=== PATIENT | female | born 1970 ===

== ENCOUNTER 2017-12-08 13:03 | Emergency (ER) | payer MEDICAID ==
[2017-12-08 13:03] VITALS: PULSE 74; BMI 25.6
[2017-12-08 13:13] VITALS: BP 135/80; PULSE 86; RESP 18; TEMP 100; O2SAT 99
[2017-12-08 14:37] LABS: BASO % 1.5 % (0.0-2.0); EOS % 0.1 % (0.0-4.0); HEMOGLOBIN 13.4 g/dL (12.0-16.0); LYMPH # 1.1 K/uL (1.0-4.3); LYMPH % 38.1 % (20.0-40.0); MEAN CELL VOLUME 89.5 fl (81.0-99.0); MEAN CORPUSCULAR HEMOGLOBIN 30.2 pg (27.0-31.0); MEAN CORPUSCULAR HGB CONC 33.7 g/dL (33.0-37.0); MEAN PLATELET VOLUME 8.7 fl (7.2-11.7); MONO # 0.3 K/uL (0.0-0.8); MONO % 12.2 % (0.0-10.0); NEUT # 1.3 K/uL (1.8-7.0); NEUT % 48.1 % (50.0-75.0); NRBC % 0.6 % (0.0-0.0); RBC 4.43 Mil/uL (3.80-5.20); RED CELL DISTRIBUTION WIDTH 14.1 % (11.5-14.5); WHITE BLOOD COUNT 2.8 K/uL (4.8-10.8)
[2017-12-08 14:47] LABS: CALCIUM 8.6 mg/dL (8.4-10.2); GFR AFRICAN-AMERICAN > 60; GFR NON-AFRICAN AMERICAN > 60
[2017-12-08 14:57] LABS: INR 5.4 (0.9-1.2); PARTIAL THROMBOPLASTIN TIME 73.2 Seconds (25.6-37.1)
[2017-12-08 15:07] LABS: ALB/GLOB RATIO 0.9 (1.0-2.1); ALBUMIN 4.2 g/dL (3.5-5.0); ALT/SGPT 35 U/L (9-52); AST/SGOT 71 U/L (14-36); BLOOD UREA NITROGEN 15 mg/dl (7-17)
[2017-12-08 15:08] LABS: PROTHROMBIN TIME 61.6 Seconds (9.8-13.1)
--- NOTE | 2017-12-08 16:02 | RAD ---
HISTORY: Cough. COMPARISON: 11/01/2014 TECHNIQUE: Chest PA and lateral FINDINGS: LUNGS: No active pulmonary disease. PLEURA: No significant pleural effusion identified. No pneumothorax apparent. CARDIOVASCULAR: Stable position of mitral valve prosthesis. Cardiomegaly. OSSEOUS STRUCTURES: No significant abnormalities. VISUALIZED UPPER ABDOMEN: Normal. OTHER FINDINGS: None. IMPRESSION: No active disease. No significant interval change compared to the prior examination(s).
--- NOTE | 2017-12-08 17:07 | CT ---
PROCEDURE: CT HEAD WITHOUT CONTRAST. HISTORY: headache COMPARISON: Noncontrast Head CT performed 10/09/14 TECHNIQUE: Axial computed tomography images were obtained through the head/brain without intravenous contrast. Radiation dose: Total exam DLP = 859.56 MGy-cm. This CT exam was performed using one or more of the following dose reduction techniques: Automated exposure control, adjustment of the mA and/or kV according to patient size, and/or use of iterative reconstruction technique. FINDINGS: HEMORRHAGE: No intracranial hemorrhage. BRAIN: Mild frontal atrophy. No mass effect or edema. The arredondo-white matter differentiation appears intact. Please note that MRI with diffusion imaging is more sensitive in the detection of acute ischemic event. VENTRICLES: No hydrocephalus. CALVARIUM: Unremarkable. PARANASAL SINUSES: Mucosal thickening of the ethmoid air cells. MASTOID AIR CELLS: Unremarkable as visualized. No inflammatory changes. OTHER FINDINGS: None. IMPRESSION: Mild frontal atrophy. Mucosal thickening of the ethmoid air cells. Correlate clinically for sinusitis.
[2017-12-08 18:40] LABS: INR 5.3 (0.9-1.2); PARTIAL THROMBOPLASTIN TIME 71.7 Seconds (25.6-37.1); PROTHROMBIN TIME 60.7 Seconds (9.8-13.1)
[2017-12-08 18:41] LABS: ALB/GLOB RATIO 0.9 (1.0-2.1); ALBUMIN 3.8 g/dL (3.5-5.0); ALT/SGPT 45 U/L (9-52); AST/SGOT 53 U/L (14-36); BLOOD UREA NITROGEN 14 mg/dl (7-17); CALCIUM 8.6 mg/dL (8.4-10.2); GFR AFRICAN-AMERICAN > 60; GFR NON-AFRICAN AMERICAN > 60
--- NOTE | 2017-12-08 19:06 | ED PDOC ---
HPI: CCC, URI, Sore Throat Time Seen by Provider: 12/08/17 13:31 Chief Complaint (Nursing): Flu-like Symptoms Past Medical History Vital Signs: Last Vital Signs Temp 100 F H 12/08/17 13:11 Pulse 86 12/08/17 13:11 Resp 18 12/08/17 13:11 BP 135/80 12/08/17 13:11 Pulse Ox 99 12/08/17 13:11 - Medical History PMH: Atrial Fibrillation, Cardia Arrhythmia (AFIB RVR), CHF (2 to valve disorder ), Pneumonia, Pneumothorax Denies: HIV, Chronic Kidney Disease - Family History Family History: States: Unknown Family Hx - Home Medications Home Medications: Ambulatory Orders Medication Instructions Recorded Aspirin [Aspirin EC] 81 mg PO DAILY 10/30/14 Furosemide 20 mg PO DAILY 10/30/14 Enoxaparin [Lovenox] 80 mg IJ DAILY #5 syr 11/02/14 Metoprolol Tartrate 25 mg PO BID #60 tab 11/02/14 Oxycodone HCl/Acetaminophen 1 tab PO Q6H PRN #0 tab 11/02/14 [Oxycodone-Acetaminophen 5-325] Warfarin [Coumadin] 2 mg PO QD5 #0 tab 11/02/14 Amoxicillin/Clavulanate [Augmentin 1 tab PO BID #20 tab 12/08/17 875 MG-125 MG] Oseltamivir [Tamiflu] 75 mg PO BID #10 cap 12/08/17 Warfarin [Coumadin] 2 mg PO DAILY #7 tab 12/08/17 - Allergies Allergies/Adverse Reactions: Allergies Allergy/AdvReac Type Severity Reaction Status Date / Time No Known Allergies Allergy Verified 09/13/14 10:13 - Laboratory Results Result Diagrams: 12/08/17 14:29 12/08/17 17:38 - ECG O2 Sat by Pulse Oximetry: 99 Disposition - Clinical Impression Clinical Impression: Influenza, Elevated INR, Sinusitis - Disposition Disposition: Routine/Home Disposition Time: 19:06 Condition: GOOD Prescriptions: Amoxicillin/Clavulanate [Augmentin 875 MG-125 MG] 1 tab PO BID #20 tab Oseltamivir [Tamiflu] 75 mg PO BID #10 cap Warfarin [Coumadin] 2 mg PO DAILY #7 tab Instructions: Influenza (ED), Sinusitis (ED) Forms: [employer] ([place])
== END 2017-12-08 20:36 | disposition home or self-care (01) ==
LOC: H.ER 13:03
DX: J11.1 Influenza due to unidentified influenza virus with other respiratory manifestations (principal); J32.9 Chronic sinusitis, unspecified; I50.9 Heart failure, unspecified; Z79.01 Long term (current) use of anticoagulants; Z79.82 Long term (current) use of aspirin; R79.1 Abnormal coagulation profile; I48.91 Unspecified atrial fibrillation

== ENCOUNTER 2018-06-30 10:00 | Observation (INO) | payer MEDICAID ==
[2018-06-30 10:00] VITALS: PULSE 74
[2018-06-30 10:10] VITALS: BMI 25.7
[2018-06-30 10:12] VITALS: TEMP 98
--- NOTE | 2018-06-30 10:58 | ED PDOC ---
HPI: Chest Pain Time Seen by Provider: 06/30/18 10:42 Chief Complaint (Nursing): Chest Pain Chief Complaint (Provider): Chest pain History Per: Patient History/Exam Limitations: no limitations Onset/Duration Of Symptoms: Days (today) Current Symptoms Are (Timing): Better Additional Complaint(s): Pt. with chest pain 2 hrs der[employer] boat [employer]. Started at rest. No dyspnea, weakness, headaches, dizziness. No back pain. No leg pain. Took her coumadin today. Past Medical History Reviewed: Nursing Documentation, Vital Signs Vital Signs: Last Vital Signs Temp 98 F 06/30/18 10:11 Pulse 77 06/30/18 10:11 Resp 20 06/30/18 10:11 BP 110/74 06/30/18 10:11 Pulse Ox 98 06/30/18 11:07 - Medical History PMH: Atrial Fibrillation, CHF (2 to valve disorder) Denies: HIV, Chronic Kidney Disease - Family History Family History: States: Unknown Family Hx - Home Medications Home Medications: Ambulatory Orders Medication Instructions Recorded Aspirin [Aspirin EC] 81 mg PO DAILY 10/30/14 Furosemide 20 mg PO DAILY 10/30/14 Enoxaparin [Lovenox] 80 mg IJ DAILY #5 syr 11/02/14 Metoprolol Tartrate 25 mg PO BID #60 tab 11/02/14 Oxycodone HCl/Acetaminophen 1 tab PO Q6H PRN #0 tab 11/02/14 [Oxycodone-Acetaminophen 5-325] Warfarin [Coumadin] 2 mg PO QD5 #0 tab 11/02/14 Amoxicillin/Clavulanate [Augmentin 1 tab PO BID #20 tab 12/08/17 875 MG-125 MG] Oseltamivir [Tamiflu] 75 mg PO BID #10 cap 12/08/17 Warfarin [Coumadin] 2 mg PO DAILY #7 tab 12/08/17 - Allergies Allergies/Adverse Reactions: Allergies Allergy/AdvReac Type Severity Reaction Status Date / Time No Known Allergies Allergy Verified 09/13/14 10:13 Review of Systems ROS Statement: Except As Marked, All Systems Reviewed And Found Negative Cardiovascular: Positive for: Chest Pain Physical Exam - Reviewed Nursing Documentation Reviewed: Yes Vital Signs Reviewed: Yes - Physical Exam Appears: Positive for: Non-toxic, No Acute Distress Head Exam: Positive for: ATRAUMATIC, NORMAL INSPECTION, NORMOCEPHALIC Skin: Positive for: Normal Color, Warm, DRY Eye Exam: Positive for: EOMI, Normal appearance, PERRL ENT: Positive for: Normal ENT Inspection Neck: Positive for: Normal, Painless ROM, Supple Cardiovascular/Chest: Positive for: Regular Rate, Rhythm. Negative for: Edema Respiratory: Positive for: CNT, Normal Breath Sounds Gastrointestinal/Abdominal: Positive for: Normal Exam, Soft. Negative for: Tenderness Back: Positive for: Normal Inspection. Negative for: L CVA Tenderness, R CVA Tenderness Extremity: Positive for: Normal ROM. Negative for: Tenderness, Pedal Edema Neurologic/Psych: Positive for: Alert, Oriented - Laboratory Results Result Diagrams: 06/30/18 11:56 06/30/18 11:56 Interpretation Of Abn Labs: no acute - ECG ECG: Positive for: Interpreted By Me, Viewed By Me ECG Rhythm: Positive for: Normal QRS, Normal ST Segment, Sinus Rhythm O2 Sat by Pulse Oximetry: 98 Pulse Ox Interpretation: Normal - Progress ED Course And Treament: 1245: Stable. AAOx3. Pain free. Spoke with for [facility]. Will admit tele obs. No ASA as pt. is on coumadin and therapeutic. Disposition - Clinical Impression Clinical Impression: Chest pain - Patient ED Disposition Is Patient to be Admitted: Yes Counseled Patient/Family Regarding: Studies Performed, Diagnosis - Disposition Disposition Time: 12:46 Condition: FAIR - Pt Status Changed To: Hospital Disposition Of: Observation
[2018-06-30] MEDS ORDERED: Sodium Chloride 0.9% 500 ML IV STA (11:07)
[2018-06-30 12:02] LABS: BASO % 0.4 % (0.0-2.0); EOS # 0.2 K/uL (0.0-0.7); EOS % 3.7 % (0.0-4.0); HEMOGLOBIN 12.5 g/dL (12.0-16.0); LYMPH # 1.7 K/uL (1.0-4.3); LYMPH % 28.3 % (20.0-40.0); MEAN CELL VOLUME 89.9 fl (81.0-99.0); MEAN CORPUSCULAR HEMOGLOBIN 30.3 pg (27.0-31.0); MEAN CORPUSCULAR HGB CONC 33.7 g/dL (33.0-37.0); MEAN PLATELET VOLUME 8.4 fl (7.2-11.7); MONO # 0.5 K/uL (0.0-0.8); MONO % 8.4 % (0.0-10.0); NEUT # 3.6 K/uL (1.8-7.0); NEUT % 59.2 % (50.0-75.0); NRBC % 0.1 % (0.0-0.0); RBC 4.15 Mil/uL (3.80-5.20); RED CELL DISTRIBUTION WIDTH 14.3 % (11.5-14.5); WHITE BLOOD COUNT 6.1 K/uL (4.8-10.8)
[2018-06-30 12:13] LABS: ALBUMIN 4.2 g/dL (3.5-5.0); ALT/SGPT 23 U/L (9-52); AST/SGOT 36 U/L (14-36); BLOOD UREA NITROGEN 16 mg/dl (7-17); CALCIUM 8.7 mg/dL (8.4-10.2); GFR AFRICAN-AMERICAN > 60; GFR NON-AFRICAN AMERICAN > 60
[2018-06-30 12:25] LABS: INR 3.7
[2018-06-30 12:27] LABS: PROTHROMBIN TIME 42.4 Seconds (9.8-13.1)
[2018-06-30 12:31] LABS: B-TYPE NATRIURETIC PEPTIDE 137 pg/ml (0-450)
--- NOTE | 2018-06-30 13:03 | CARD ---
APPROVED REPORT Date of service: 06/30/2018 EKG Measurement Heart [id number] <Conclusion> Normal sinus rhythm Normal ECG
--- NOTE | 2018-06-30 13:26 | CP.PCM.HP ---
History of Present Illness - History of Present Illness History of Present Illness: This is 47 y/o Female with PMH of A-fib (on warfarin) and Mitral valve stenosis s/p valve replacement (09/2014) admitted to [facility] for evaluation and treatment of one day history of chest pain. As per patient, chest pain started this morning at 9:00am while she was talking to her colleague at work. Pain is sub- sternal in location, 6/10, non-radiating, lasted for 30 mins and resolved, pressure like in nature, no alleviating or aggravating factors. Patient never had this kind of pain before, denies any fever, chills, nausea, vomiting, diaphoretic, dizziness, palpitations, blurred vision, abdominal pain or urinary symptoms. PMD: [facility], Dr. Dickinson Cardiology: Dr. Mary Lou Alfaro PMH: A-fib (on warfarin) and Mitral valve stenosis s/p valve replacement (2013) PSH: Mitral valve stenosis s/p valve replacement (09/2014) Allg: NKDA Meds: Warfarin 3.5mg daily FH: No significant family history, Both parents SH: Denies any Alcohol, smoking or illicit drug use OBGYN: Post-menopausal since last 1 year ROS: As per HPI ED course: VS: 98 tm, 77 HR, 110/74, RR 20, Spo2 98% RA CBC: WNL CMP: WNL Troponin x1 Negative in ER EKG: NSR CXR: No acute changes S/p NG and IVF Present on Admission - Present on Admission Any Indicators Present on Admission: No Past Patient History - Infectious Disease Hx of Infectious Diseases: None - Tetanus Immunizations Tetanus Immunization: Unknown - Past Medical History & Family History Past Medical History?: Yes - Past Social History Smoking Status: Never Smoked - CARDIAC Hx Atrial Fibrillation: Yes Hx Congestive Heart Failure: Yes (2 to valve disorder) - PULMONARY Hx Pneumonia: Yes - NEUROLOGICAL Hx Neurological Disorder: No - HEENT Hx HEENT Problems: No - RENAL Hx Chronic Kidney Disease: No - ENDOCRINE/METABOLIC Hx Endocrine Disorders: No - HEMATOLOGICAL/ONCOLOGICAL Hx Human Immunodeficiency Virus (HIV): No - INTEGUMENTARY Hx Dermatological Problems: No - MUSCULOSKELETAL/RHEUMATOLOGICAL Hx Falls: No - GASTROINTESTINAL Hx Gastrointestinal Disorders: No - GENITOURINARY/GYNECOLOGICAL Hx Genitourinary Disorders: No - PSYCHIATRIC Hx Psychophysiologic Disorder: No Hx Substance Use: No - SURGICAL HISTORY Hx Valve Replacement: Yes Other/Comment: Left Arm PICC line placement - ANESTHESIA Hx Anesthesia: Yes Hx Anesthesia Reactions: No Hx Malignant Hyperthermia: No Meds Allergies/Adverse Reactions: Allergies Allergy/AdvReac Type Severity Reaction Status Date / Time No Known Allergies Allergy Verified 09/13/14 10:13 Physical Exam - Constitutional Appears: Well, No Acute Distress - Head Exam Head Exam: ATRAUMATIC, NORMAL INSPECTION, NORMOCEPHALIC - Eye Exam Eye Exam: EOMI, Normal appearance, PERRL Pupil Exam: NORMAL ACCOMODATION, PERRL - ENT Exam ENT Exam: Mucous Membranes Moist, Normal Exam - Neck Exam Neck exam: Positive for: Normal Inspection - Respiratory Exam Respiratory Exam: Clear to Auscultation Bilateral, NORMAL BREATHING PATTERN. absent: Accessory Muscle Use, Chest Wall Tenderness, Decreased Breath Sounds, Prolonged Expiratory Phase, Rales, Rhonchi, Wheezes, Respiratory Distress - Cardiovascular Exam Cardiovascular Exam: Irregular Rhythm, +S1, +S2 - GI/Abdominal Exam GI & Abdominal Exam: Normal Bowel Sounds, Soft. absent: Distended, Organomegaly , Rebound, Tenderness - Extremities Exam Extremities exam: Positive for: normal capillary refill, normal inspection, pedal pulses present. Negative for: pedal edema, tenderness - Back Exam Back exam: NORMAL INSPECTION. absent: CVA tenderness (L), CVA tenderness (R) - Neurological Exam Neurological exam: Alert, CN II-XII Intact, Normal Gait, Oriented x3, Reflexes Normal - Psychiatric Exam Psychiatric exam: Normal Affect, Normal Mood - Skin Skin Exam: Dry, Intact, Normal Color, Warm Results - Vital Signs Recent Vital Signs: Last Vital Signs Temp 98 F 06/30/18 10:11 Pulse 77 06/30/18 10:11 Resp 20 06/30/18 10:11 BP 110/74 06/30/18 10:11 Pulse Ox 98 06/30/18 12:46 - Labs Result Diagrams: 06/30/18 11:56 06/30/18 11:56 Labs: Laboratory Results - last 24 hr 06/30/18 06/30/18 06/30/18 11:56 11:56 11:56 WBC 6.1 RBC 4.15 Hgb 12.5 Hct 37.3 MCV 89.9 MCH 30.3 MCHC 33.7 RDW 14.3 Plt Count 202 MPV 8.4 Neut % (Auto) 59.2 Lymph % (Auto) 28.3 [place] % (Auto) 8.4 Eos % (Auto) 3.7 Baso % (Auto) 0.4 Neut # (Auto) 3.6 Lymph # (Auto) 1.7 [place] # (Auto) 0.5 Eos # (Auto) 0.2 Baso # (Auto) 0.0 PT 42.4 H* INR 3.7 APTT 67.0 H Sodium 144 Potassium 3.7 Chloride 106 Carbon Dioxide 25 Anion Gap 17 BUN 16 Creatinine 0.7 Est GFR ( Amer) > 60 Est GFR (Non-Af Amer) > 60 Random Glucose 87 Calcium 8.7 Total Bilirubin 0.8 AST 36 D ALT 23 Alkaline Phosphatase 70 Troponin I < 0.0120 NT-Pro-B Natriuret Pep 137 Total Protein 8.4 H Albumin 4.2 Globulin 4.2 H Albumin/Globulin Ratio 1.0 Assessment & Plan - Assessment and Plan (Free Text) Assessment: A/P: 47 y/o Female with PMH of A-fib (on warfarin) and Mitral valve stenosis s/p valve replacement (09/2014) admitted to [facility] for evaluation and treatment of one day history of chest pain. Chest pain, r/o ACS - Troponin x 1 negative - EKG: NSR - Follow up Troponin x 2 - Cardiology consult, Dr. Mary Lou prieto, will follow recommendations (Patient has Hx of A-fib and following up with Dr. Alfaro) History of A- Fib - C/w Home Warfarin 3.5 mg daily DVT Prophylaxis - SCD - Warfarin 3.5 mg daily
--- NOTE | 2018-06-30 13:37 | RAD ---
Date of service: 06/30/2018 HISTORY: dyspnea COMPARISON: No prior. FINDINGS: LUNGS: No active pulmonary disease. PLEURA: No significant pleural effusion identified, no pneumothorax apparent. CARDIOVASCULAR: Cardiomegaly. Valvular prosthesis again identified. OSSEOUS STRUCTURES: No significant abnormalities. VISUALIZED UPPER ABDOMEN: Normal. OTHER FINDINGS: None. IMPRESSION: No active disease. No significant interval change compared to the prior examination(s). Concordant results with the preliminary interpretation rendered by the emergency department physician procedure.
--- NOTE | 2018-06-30 14:43 | CP.PCM.CON ---
History of Present Illness - History of Present Illness History of Present Illness: this 47-year-old female is well-known to me. She has had a history of rheumatic heart disease that required mitral valve replacement in 2013 followed by a stormy postoperative course. For the last year to year and a half the patient has been in regular sinus rhythm and free of congestive cardiac failure. She has been taking warfarin regularly and gets her INR checked every 2 months. There has not been any bleeding episode. The patient is not a hypertensive or diabetic. Sheis not a smoker.the patient came to the emergency room after experiencing left pectoral ache which was quite unconnected to any physical activity.It did not radiate to her arm or jaw and was not accompanied by any nausea vomiting or perspiration. Physical examination shows a young female who is quite alert awake coherent afebrile and comfortable. Breeds at 14 breaths per minute and has a heart rate of 64 bpm regular. Her blood pressure was 128/74 mmHg. Her jugular venous pressure was not elevated and there was no edema over his lower extremity. The pedal pulses were well felt. Thyroid and breast did not reveal anything abnormal. The apex was in the sixth space slightly heaving in character. The mitral prosthetic aislinn was audible. there were no rales. Her abdomen was soft and liver and spleen are not palpable. Her cardiogram showed sinus rhythm with normal QRS and ST-T waves. No ischemic pattern was detected.her lab data was noted. Her troponin level was normal. impression: atypical chest pain with no evidence of acute coronary syndrome. 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 The patient is stable from cardiovascular point of view and may return home to be managed as an outpatient. Past Patient History - Infectious Disease Hx of Infectious Diseases: None - Tetanus Immunizations Tetanus Immunization: Unknown - Past Medical History & Family History Past Medical History?: Yes - Past Social History Smoking Status: Never Smoked - CARDIAC Hx Atrial Fibrillation: Yes Hx Congestive Heart Failure: Yes (2 to valve disorder) - PULMONARY Hx Pneumonia: Yes - NEUROLOGICAL Hx Neurological Disorder: No - HEENT Hx HEENT Problems: No - RENAL Hx Chronic Kidney Disease: No - ENDOCRINE/METABOLIC Hx Endocrine Disorders: No - HEMATOLOGICAL/ONCOLOGICAL Hx Human Immunodeficiency Virus (HIV): No - INTEGUMENTARY Hx Dermatological Problems: No - MUSCULOSKELETAL/RHEUMATOLOGICAL Hx Falls: No - GASTROINTESTINAL Hx Gastrointestinal Disorders: No - GENITOURINARY/GYNECOLOGICAL Hx Genitourinary Disorders: No - PSYCHIATRIC Hx Psychophysiologic Disorder: No Hx Substance Use: No - SURGICAL HISTORY Hx Valve Replacement: Yes Other/Comment: Left Arm PICC line placement - ANESTHESIA Hx Anesthesia: Yes Hx Anesthesia Reactions: No Hx Malignant Hyperthermia: No Meds Allergies/Adverse Reactions: Allergies Allergy/AdvReac Type Severity Reaction Status Date / Time No Known Allergies Allergy Verified 09/13/14 10:13 - Medications Medications: Current Medications Sodium Chloride (Sodium Chloride 0.9%) 500 mls @ 100 mls/hr IV .Q5H STA Stop: 06/30/18 16:06 Last Admin: 06/30/18 11:32 Dose: 100 mls/hr Warfarin Sodium (Coumadin) 3.5 mg PO QPM FABIAN PRN Reason: Protocol Results - Vital Signs Recent Vital Signs: Last Vital Signs Temp 98 F 06/30/18 10:11 Pulse 77 06/30/18 10:11 Resp 20 06/30/18 10:11 BP 110/74 06/30/18 10:11 Pulse Ox 98 06/30/18 12:46 - Labs Result Diagrams: 06/30/18 11:56 06/30/18 11:56 Labs: Laboratory Results - last 24 hr 06/30/18 06/30/18 06/30/18 11:56 11:56 11:56 WBC 6.1 RBC 4.15 Hgb 12.5 Hct 37.3 MCV 89.9 MCH 30.3 MCHC 33.7 RDW 14.3 Plt Count 202 MPV 8.4 Neut % (Auto) 59.2 Lymph % (Auto) 28.3 [place] % (Auto) 8.4 Eos % (Auto) 3.7 Baso % (Auto) 0.4 Neut # (Auto) 3.6 Lymph # (Auto) 1.7 [place] # (Auto) 0.5 Eos # (Auto) 0.2 Baso # (Auto) 0.0 PT 42.4 H* INR 3.7 APTT 67.0 H Sodium 144 Potassium 3.7 Chloride 106 Carbon Dioxide 25 Anion Gap 17 BUN 16 Creatinine 0.7 Est GFR ( Amer) > 60 Est GFR (Non-Af Amer) > 60 Random Glucose 87 Calcium 8.7 Total Bilirubin 0.8 AST 36 D ALT 23 Alkaline Phosphatase 70 Troponin I < 0.0120 NT-Pro-B Natriuret Pep 137 Total Protein 8.4 H Albumin 4.2 Globulin 4.2 H Albumin/Globulin Ratio 1.0
[2018-06-30 15:52] VITALS: BP 122/70; PULSE 78; RESP 17; O2SAT 100
== END 2018-06-30 15:51 | disposition home or self-care (01) ==
LOC: H.ER 10:00 → H.ERHOLD 12:45
PROVIDERS: ADMIT Family Medicine Geriatric Medicine; ATTEND Family Medicine Geriatric Medicine
DX: R07.89 Other chest pain (principal); I48.91 Unspecified atrial fibrillation; Z79.01 Long term (current) use of anticoagulants; I50.9 Heart failure, unspecified; Z87.01 Personal history of pneumonia (recurrent); Z95.2 Presence of prosthetic heart valve
CPT/HCPCS: 71045; 80053; 81025; 83880; 84484; 85025; 85610; 85730; 93005; 99283; G0378; J7040

== ENCOUNTER 2019-03-29 11:54 | Emergency (ER) | payer MEDICAID ==
[2019-03-29 11:55] VITALS: PULSE 74
[2019-03-29 12:11] VITALS: BMI 26.5
--- NOTE | 2019-03-29 14:01 | ED PDOC ---
HPI: General Adult Time Seen by Provider: 03/29/19 12:21 Chief Complaint (Nursing): Abnormal Labs Chief Complaint (Provider): Bruising History Per: Patient History/Exam Limitations: no limitations Onset/Duration Of Symptoms: Days Have you had recent travel within the past 21 days to any of the following coun tries: [place], [place], [place] or [place]?: No Current Symptoms Are (Timing): Still Present Additional History Per: Patient Additional Complaint(s): Patient presents to ED for evaluation of bruising on her right arm and left inner leg without injury. Patient states she takes warfarin so she is concerned her INR levels might not be optimal. Otherwise, no weakness, numbness to extremities, or other complaints. PMD: [facility] Past Medical History Reviewed: Historical Data, Nursing Documentation, Vital Signs Vital Signs: Last Vital Signs Temp 98.5 F 03/29/19 12:11 Pulse 76 03/29/19 12:11 Resp 17 03/29/19 12:11 BP 143/83 03/29/19 12:11 Pulse Ox 98 03/29/19 12:11 Primary Care Provider: Doctor,Conversion - Medical History PMH: Atrial Fibrillation, Cardia Arrhythmia (AFIB RVR), CHF (2 to valve disorder), Pneumonia, Pneumothorax Denies: HIV, Chronic Kidney Disease - Family History Family History: States: Unknown Family Hx - Home Medications Home Medications: Ambulatory Orders Medication Instructions Recorded Warfarin [Coumadin] 3.5 mg PO QPM 06/30/18 - Allergies Allergies/Adverse Reactions: Allergies Allergy/AdvReac Type Severity Reaction Status Date / Time No Known Allergies Allergy Verified 03/29/19 12:15 Review of Systems Cardiovascular: Negative for: Chest Pain Skin: Positive for: Bruising (right arm, left leg) Neurological: Negative for: Weakness, Numbness Physical Exam - Reviewed Nursing Documentation Reviewed: Yes Vital Signs Reviewed: Yes - Physical Exam Appears: Positive for: Non-toxic, No Acute Distress Head Exam: Positive for: NORMAL INSPECTION Skin: Positive for: Warm, Dry Neck: Positive for: Supple Cardiovascular/Chest: Positive for: Regular Rate, Rhythm. Negative for: Tachycardia Respiratory: Positive for: Normal Breath Sounds. Negative for: Respiratory Distress Extremity: Positive for: Normal ROM, Other (small area of bruising noted to right upper arm and left inner leg. NO tenderness or deformity noted to site.). Negative for: Tenderness Neurological/Psych: Positive for: Awake, Alert, Normal Tone. Negative for: Motor/Sensory Deficits - Laboratory Results Result Diagrams: 03/29/19 16:21 03/29/19 16:21 Lab Results: PT Cancelled 03/29/19 13:10 INR Cancelled 03/29/19 13:10 APTT Cancelled 03/29/19 13:10 - ECG O2 Sat by Pulse Oximetry: 98 (RA) Pulse Ox Interpretation: Normal Medical Decision Making Medical Decision Making: Impression: Atraumatic bruising while on warfarin Plan: -- PT -- INR 1535 Discussed lab values with Dr. Serrano, patient's boarding mother, who said to check H&H and if normal, patient can omit 2 doses of warfarin. 1719 Labs reviewed, H&H within normal limits. Patient with low potassium, KCl 40meq given. Patient denies any palpitations or chest discomfort. Patient informed of lab findings as well as Dr. Roger's instructions. Repeat EKG normal Patient stable for discharge home, informed to follow up with PMD/Dr. Serrano in -3 days. Scribe Attestation: Documented by Clarisse Mora, acting as a scribe for YANELY Black Provider Scribe Attestation: All medical record entries made by the Scribe were at my direction and personally dictated by me. I have reviewed the chart and agree that the record accurately reflects my personal performance of the history, physical exam, medical decision making, and the department course for this patient. I have also personally directed, reviewed, and agree with the discharge instructions and disposition. Disposition - Clinical Impression Clinical Impression: Abnormal INR - Patient ED Disposition Is Patient to be Admitted: No - Disposition Referrals: Jones Serrano MD [Staff Provider] - Disposition: Routine/Home Disposition Time: 17:20 Condition: STABLE Additional Instructions: Please skip 2 doses of warfarin. Follow-up with Dr. Serrano. Instructions: Prothrombin Time (PT) Test and International Normalized Ratio (INR) Forms: [employer] ([place])
[2019-03-29 15:01] LABS: PARTIAL THROMBOPLASTIN TIME 79.7 Seconds (25.6-37.1)
[2019-03-29 15:14] LABS: INR 5.4
[2019-03-29 15:16] LABS: PROTHROMBIN TIME 61.3 Seconds (9.8-13.1)
[2019-03-29 16:31] LABS: BASO % 0.5 % (0.0-2.0); EOS # 0.2 K/uL (0.0-0.7); EOS % 2.8 % (0.0-4.0); HEMOGLOBIN 13.2 g/dL (12.0-16.0); LYMPH # 2.3 K/uL (1.0-4.3); LYMPH % 33.7 % (20.0-40.0); MEAN CELL VOLUME 90.7 fl (81.0-99.0); MEAN CORPUSCULAR HEMOGLOBIN 29.6 pg (27.0-31.0); MEAN CORPUSCULAR HGB CONC 32.6 g/dL (33.0-37.0); MEAN PLATELET VOLUME 8.2 fl (7.2-11.7); MONO # 0.8 K/uL (0.0-0.8); MONO % 11.3 % (0.0-10.0); NEUT # 3.6 K/uL (1.8-7.0); NEUT % 51.7 % (50.0-75.0); NRBC % 0.1 % (0.0-0.0); RBC 4.47 Mil/uL (3.80-5.20); RED CELL DISTRIBUTION WIDTH 14.2 % (11.5-14.5)
[2019-03-29 16:36] LABS: ALBUMIN 4.4 g/dL (3.5-5.0); ALT/SGPT 19 U/L (9-52); AST/SGOT 34 U/L (14-36); BLOOD UREA NITROGEN 14 mg/dl (7-17); CALCIUM 9.3 mg/dL (8.4-10.2); GFR NON-AFRICAN AMERICAN > 60
[2019-03-29] MEDS ORDERED: Potassium Chloride 10 mEq ER Tab PO STA (16:37)
[2019-03-29] MEDS ORDERED: Potassium Chloride 20 mEq ER Tab PO ONE (17:23)
[2019-03-29 18:19] VITALS: BP 129/77; PULSE 68; RESP 16; TEMP 98.2; O2SAT 100
== END 2019-03-29 18:19 | disposition home or self-care (01) ==
LOC: H.ER 11:54
DX: Z79.01 Long term (current) use of anticoagulants (principal)